=== PATIENT | male | born 1990 | race Caucasian/White ===

== ENCOUNTER 2017-05-01 12:23 | Observation (INO) | payer OTHER ==
[2017-05-01] VITALS (9 sets, daily range): BP systolic 131–149; BP diastolic 70–97; PULSE 70–94; RESP 18–20; TEMP 98.6–101.3; O2SAT 97–100
[~2017-05-01 12:23] MED LIST: DEXM10XR PO
[2017-05-01] MEDS ORDERED: SODIUM CHLORIDE 0.9% FLUSH 10 ML FLUSH IV FLUSH PRN (16:00)
[2017-05-01] MEDS ORDERED: SENNOSIDES 8.6 MG TAB PO PRN (16:00)
[2017-05-01] MEDS ORDERED: BISACODYL 10 MG SUPP RECTAL PRN (16:00)
[2017-05-01] MEDS ORDERED: NALOXONE HCL 0.4 MG/ML AMP IV PUSH PRN (16:00)
[2017-05-01] MEDS ORDERED: LACTULOSE SYRUP 20 GM/30 ML CUP PO PRN (16:00)
[2017-05-01] MEDS ORDERED: MAGNESIUM HYDROXIDE SUSP 30 ML CUP PO PRN (16:00)
--- NOTE | 2017-05-01 16:22 | HHI.HP ---
HPI Service [facility] Hospitalists Primary Care Physician No Primary Care Physician Admission Diagnosis Diagnoses: Chief Complaint: chest and back pain Travel History International Travel<30 Days: No Contact w/Intl Traveler <30 Da: No History of Present Illness Written by Mono Hardy, acting as scribe for Dr. Chavez on 05/01/17 at 16:21. 26 year old male with a past medical history of ADHD who presented for back and chest pain. The patient states that yesterday he began having back pain in the morning and progressively worsened throughout the day. He states that around midday yesterday he began having radiation of the back pain into his chest that has progressively worsened as well. He describes the pain as sharp and tight. He feels like the pain is different between the 2 of them. The pain is worse whenever he moves and whenever he takes a deep breath. He states when he woke up this morning the pain was much more severe and it made it difficult to move because of that exacerbated the pain. He has had occasional short sharp episodes of back pain and chest pain over the last few years intermittently, but doesn't feel like this pain is similar. He was noted to have an EKG consistent with Brugada syndrome in the ED, cardiology was contacted, and the patient was transferred from the [place] ED to [facility] in [facility]. RN bedside has noted that since the patient got here he has a fever of 101. The patient states that yesterday he did notice that he started to have a dry cough. He denies any sick contacts. He has noted a headache and some lightheadedness especially with position changes for the last month. He denies any nausea or vomiting. Has not taken any ADHD medicines since he was 19. He has smoked since age 15. His father did have his first MS in his 40s. Patient states that he has had soreness in his hands bilaterally for the last year. The patient states his legs and knees are sore after a days work. Review of Systems Except as stated in HPI: all other systems reviewed are Neg Past Family Social History Past Medical History ADHD, off meds 7 years Past Surgical History Cyst from above left eye removed. Reported Medications None Allergies: Coded Allergies: No Known Allergies (Verified , 05/04/05) Active Ordered Medications Current Medications Medications (Trade) Dose Ordered Sig/Jason Route Start Time Stop Time Status Last Admin (NS Flush) 2 ml UNSCH PRN IV FLUSH 05/01/17 16:00 UNV (NS Flush) 2 ml BID IV FLUSH 05/01/17 21:00 UNV (Narcan Inj) 0.4 mg UNSCH PRN IV PUSH 05/01/17 16:00 UNV (Milk Of Magnesia Liq) 30 ml Q12H PRN PO 05/01/17 16:00 UNV (Senokot) 17.2 mg Q12H PRN PO 05/01/17 16:00 UNV (Dulcolax Supp) 10 mg DAILY PRN RECTAL 05/01/17 16:00 UNV (Lactulose Liq) 30 ml DAILY PRN PO 05/01/17 16:00 UNV Family History Father had his first MS in his 40s and at age 65 Mother has arthritis and anemia Social History Smokes half a pack per day since age 15 Social alcohol use Marijuana use, last used 3 days ago Works grinding metal Physical Exam Physical Exam GENERAL: Well-developed well-nourished. In no acute distress. SKIN: Warm and dry. No lesions noted. HEENT: Normocephalic. Pupils equal and round. Mucous membranes pink and moist. CARDIOVASCULAR: Regular rate and rhythm. No murmur appreciated. Anterior chest wall with some tenderness along the left sternal border the patient states is the same as the chest pain he's been having. RESPIRATORY: No accessory muscle use. Clear to auscultation. Breath sounds equal bilaterally. GASTROINTESTINAL: Abdomen soft, non-tender, nondistended. Bowel sounds x4. MUSCULOSKELETAL: No obvious deformities. No clubbing or cyanosis. No edema. NEUROLOGICAL: Awake and alert. No focal neurological deficits. Moves upper and lower extremities spontaneously. Normal speech. PSYCHIATRIC: Appropriate mood and affect; insight and judgment normal. Caprini VTE Risk Assessment Caprini VTE Risk Assessment: No/Low Risk (score <= 1) Caprini Risk Assessment Model Point Value = 1 Point Value = 2 Point Value = 3 Point Value = 5 Age 41-60 Minor surgery BMI > 25 kg/m2 Swollen legs Varicose veins or History of unexplained or recurrent spontaneous Oral contraceptives or hormone replacement Sepsis (< 1 month) Serious lung disease, including pneumonia (< 1 month) Abnormal pulmonary function Acute myocardial infarction Congestive heart failure (< 1 month) History of inflammatory bowel disease Medical patient at bed rest Age 61-74 Arthroscopic surgery Major open surgery (> 45 min) Laparoscopic surgery (> 45 min) Malignancy Confined to bed (> 72 hours) Immobilizing plaster cast Central venous access Age >= 75 History of VTE Family history of VTE Factor V Leiden Prothrombin [id number] Lupus anticoagulant Anticardiolipin antibodies Elevated serum homocysteine Heparin-induced thrombocytopenia Other congenital or acquired thrombophilia Stroke (< 1 month) Elective arthroplasty Hip, pelvis, or leg fracture Acute spinal cord injury (< 1 month) Prophylaxis Regimen Total Risk Factor Score Risk Level Prophylaxis Regimen 0-1 Low Early ambulation 2 Moderate Order ONE of the following: *Sequential Compression Device (SCD) *Heparin 5000 units SQ BID 3-4 Higher Order ONE of the following medications: *Heparin 5000 units SQ TID *Enoxaparin/Lovenox 40 mg SQ daily (WT < 150 kg, CrCl > 30 mL/min) *Enoxaparin/Lovenox 30 mg SQ daily (WT < 150 kg, CrCl > 10-29 mL/min) *Enoxaparin/Lovenox 30 mg SQ BID (WT < 150 kg, CrCl > 30 mL/min) AND/OR *Sequential Compression Device (SCD) 5 or more Highest Order ONE of the following medications: *Heparin 5000 units SQ TID (Preferred with Epidurals) *Enoxaparin/Lovenox 40 mg SQ daily (WT < 150 kg, CrCl > 30 mL/min) *Enoxaparin/Lovenox 30 mg SQ daily (WT < 150 kg, CrCl > 10-29 mL/min) *Enoxaparin/Lovenox 30 mg SQ BID (WT < 150 kg, CrCl > 30 mL/min) AND *Sequential Compression Device (SCD) Assessment and Plan Assessment and Plan 26 year old male with a past medical history of ADHD who presented for back and chest pain Back and chest pain: Reviewed: Initial troponin 0.02. EKG with incomplete right bundle branch block and sharp ST elevation in V1 and V2; V1 had similar features on previous EKG from 2007. Fever with no leukocytosis. -Check CTA of the chest to evaluate especially for PE or dissection, or possible pneumonia -Check echocardiogram, pericarditis is in the differential -Continue to trend cardiac enzymes and EKGs -Check ESR, UDS, lipase -Cardiology has been consulted Brugada syndrome: EKG as above consistent with Brugada syndrome. -Further workup as above -Telemetry monitoring SIRS: Fever, tachycardia. Chest x-ray unremarkable. -Check blood cultures and lactic acid -IVF Discussed Condition With Patient with girlfriend and RN at bedside, ED M.D. Attending Statement This note was transcribed by scribdong [Mono Hardy]. I, Dr. Rick Chavez personally performed the history, physical exam, and medical decision making; and confirmed the accuracy of the information in the transcribed note. Authenticated by Dr. Rick Chavez on 05/01/17 at 22:36. Mono Hardy May 01, 2017 16:22 Rick Chavez MD May 01, 2017 22:36
[2017-05-01] MEDS ORDERED: IOHEXOL 350 MG/ML 10 ML VIAL (for RAD DIAG) IVCONTRAST ONE (16:36)
[2017-05-01] MEDS ORDERED: SODIUM CHLORID 0.9% 500 ML INJ 500 ML IV ONE (17:00)
[2017-05-01] MEDS: ACETAMINOPHEN 325 MG TAB PO PRN (17:39)
[2017-05-01] MEDS: SODIUM CHLOR 0.9% 1000 ML INJ 1,000 ML IV SCH (17:45)
[2017-05-01] MEDS: MORPHINE SULFATE 2 MG/ML INJ IV PUSH PRN ×2 (19:19→21:56)
--- NOTE | 2017-05-01 19:29 | MB ---
cc: NHAN VO MD DATE OF CONSULTATION 05/01/2017 INDICATION Chest pain. HISTORY OF PRESENT ILLNESS this is a very nice 26-year-old who has a history of ADHD who presented with chest and back pain. The patient basically states that he was in his usual state of health until about noon yesterday when his started developing back pain. It eventually became a little worse and radiating towards the chest. He describes it as sort of a tightness and not so much sharp pain as an achy feeling. It is worse with deep inspiration. He states that maybe palpation might make things a little worse. It was not exertional. He had presented to the emergency department over in [place]. There he had an electrocardiogram which showed a right bundle-branch block with ST elevation in the V1 lead and brugada like EKG. Obviously with this concerning future, I was contacted for further recommendations. The patient actually denies any history of syncope and family history blake he does have a father who passed at age 65 as a sudden event, but he also had bypass surgery and coronary disease. The patient was subsequently transferred over to inpatient status. He is slightly uncomfortable now. Electrocardiogram has not shown any change in and troponin is negative. PAST MEDICAL HISTORY ADHD. ALLERGIES NO KNOWN DRUG ALLERGIES. FAMILY HISTORY Dad did have a heart attack in his 40s, at age 65 suddenly after having a diagnosis of coronary disease and bypass surgery. I am not sure if this was arrhythmia driven or not. SOCIAL HISTORY Smokes half-a-pack a day since age 15. Social alcohol use. Does report marijuana use. REVIEW OF SYSTEMS 12-point review of systems was performed, negative unless otherwise noted is history of present illness. PHYSICAL EXAMINATION VITAL SIGNS: Temperature 101.3, pulse 93, blood pressure 149/86 mmHg. GENERAL: Alert and oriented times three in no acute distress. HEENT: Pupils reactive to light and accommodation, extraocular movements are intact. No elevation in jugular venous distension. No thyromegaly or lymphadenopathy. No carotid bruits. LUNGS: Clear to auscultation bilaterally. CARDIOVASCULAR: Regular rate and rhythm without murmurs, rubs or gallops. ABDOMEN: Nontender, nondistended. Good bowel sounds. No hepatosplenomegaly. EXTREMITIES: No clubbing, cyanosis or edema. Good peripheral pulses. NEUROLOGIC: Cranial nerves intact. Motor and sensory grossly intact. LABORATORY DATA WBC - 9.1, hemoglobin 16.8, platelet count 237, INR is 1.1, sodium 138, potassium 3.5, BUN is 11, creatinine is 1.2, troponin 0.02. CARDIOLOGY STUDIES Electrocardiogram shows sinus rhythm. Incomplete right bundle-branch block with ST elevation isolated to lead I. ASSESSMENT 1. Chest pain. 2. Abnormal electrocardiogram. PLAN 1. The patient's symptoms sound somewhat pleuritic in nature, worse with deep inspiration. He has had prolonged symptoms now for greater than 12 hours with no evolution of electrocardiographic changes or elevation in troponin. It does not appear to be cardiac in nature, particularly given his age and lack of risk factors. Would be potentially be concerned for aortic dissection given the radiation towards his back, but his blood pressure is not particularly that high. We will wait to get the CTA of the aorta and also, given his pleuritic chest pain and also to make sure he does not have a pulmonary embolism, can get a 2-D echocardiogram routinely. Rule out any structural heart disease. If his workup is essentially negative, we can start him nonsteroidal anti-inflammatories for pleuritis. He does have a fever and cough so this may be early infectious process. 2. From electrocardiogram perspective, it appears that this abnormal EKG finding has a strong appearance consistent with Brugada syndrome, has been present now for quite some time. Although he does have a family history of sudden , it is isolated to his father who has a history of coronary disease and bypass surgery and this occurred at age 65, not at a young age. This patient has not had any symptoms of presyncope or syncope and he has been otherwise healthy. We will still ask electrophysiology for their opinion just to determine his potential risk for any sudden events given his abnormal EKG. I think this is more of an incidental finding. It has nothing to do with his presentation of symptoms. MD KEVIN Masters/ /6:16 PM /6:56 PM
[2017-05-01] MEDS: SODIUM CHLORIDE 0.9% FLUSH 10 ML FLUSH IV FLUSH SCH (21:00)
[2017-05-01] MEDS ORDERED: ATROPINE SULFATE 1 MG/10 ML SYRINGE ONE (21:12)
[2017-05-01] MEDS ORDERED: EPINEPHrine HCL (1:10,000) 1 MG/10 ML SYRINGE ONE (21:12)
--- NOTE | 2017-05-01 22:19 | RADRPT ---
EXAM DATE/TIME: 05/01/2017 21:21 [facility] COMPARISON: CHEST SINGLE AP, May 01, 2017, 10:59. INDICATIONS : Shortness of breath, cough. Evaluate dissection and pulmonary embolism. IV CONTRAST: 100 cc Omnipaque 350 (iohexol) IV RADIATION DOSE: 5.88 CTDIvol (mGy) MEDICAL HISTORY : None SURGICAL HISTORY : None. ENCOUNTER: Initial ACUITY: 1 day PAIN SCALE: 4/10 LOCATION: chest TECHNIQUE: Volumetric scanning was performed using a multi-row detector CT scanner. The data was post processed with a variety of visualization algorithms including full volume maximum intensity projection, multi -planar sliding thin slab reformation, curved planar reformation, and surface rendering techniques. Using automated exposure control and adjustment of the mA and/or kV according to patient size, radiat ion dose was kept as low as reasonably achievable to obtain optimal diagnostic quality images. DICOM format image data is available electronically for review and comparison. FINDINGS: LUNGS: There is no consolidation or pneumothorax. No concerning pulmonary nodule is visualized. No pleural fluid is present. MEDIASTINUM: No abnormally enlarged lymph nodes by CT criteria. No axillary or hilar abnormalities are identified. ABDOMEN: The liver and spleen are free of focal defects. The gallbladder and pancreas demonstrate no abnormali ty. The adrenal glands are normal. The kidneys demonstrate no evidence of solid renal mass or hydrone phrosis. No free fluid or abdominal masses are identified. No para-aortic adenopathy is seen. PELVIS: No evidence of free fluid or pelvic mass. No abnormally enlarged inguinal or retroperitoneal lymph no ruddy are present. The bladder is unremarkable. THORACIC AORTA: The thoracic aortic root is normal with normal branching of the great vessels. There is no evidence of aneurysm or dissection. ABDOMINAL AORTA: The aorta is normal in caliber without aneurysm or dissection. The renal arteries are patent bilater ally. The proximal celiac and superior mesenteric arteries are patent and normal in diameter. PELVIC VESSELS: The internal iliac and external iliac vessels are patent without aneurysm or stenosis. Miscellaneous. Intrathoracic and intra-abdominal contents appear normal with pulmonary vascularity both arterial and venous relatively well visualized and there is no evidence of pulmonary embolism. CONCLUSION: Normal examination. No evidence of vascular aneurysm or dissection. Negative pulmonary vascularity. Intrathoracic and intra-abdominal contents are normal. Maxi Ocasio MD on May 01, 2017 at 22:14 Board Certified Radiologist. This report was verified electronically.
[2017-05-01 23:44] LABS: ALKALINE PHOSPHATASE 38 U/L (45-117); TOTAL BILIRUBIN ADULT 0.6 MG/DL (0.2-1.0)
[2017-05-01 23:57] LABS: ALT (GPT) 15 U/L (12-78); AST (GOT) 10 U/L (15-37); INDIRECT BILIRUBIN 0.4 MG/DL (0.0-0.8)
[2017-05-02] VITALS (26 sets, daily range): BP systolic 127–132; BP diastolic 71–91; PULSE 54–96; RESP 17–18; TEMP 98.4–100.1; O2SAT 94–100
[2017-05-02] MEDS: SODIUM CHLOR 0.9% 1000 ML INJ 1,000 ML IV SCH ×3 (03:00→22:40)
[2017-05-02] MEDS: MORPHINE SULFATE 2 MG/ML INJ IV PUSH PRN (04:09)
[2017-05-02 06:54] LABS: AUTOMATED NEUTROPHIL # 5.6 TH/MM3 (1.8-7.7); BASOPHIL % 0.3 % (0.0-2.0); EOSINOPHIL % 0.1 % (0.0-4.0); HEMATOCRIT 41.9 % (39.0-51.0); HEMO FLAGS DIFF FINAL; LYMPHOCYTE # 1.2 TH/MM3 (1.0-4.8); MEAN CELL VOLUME 86.7 FL (80.0-100.0); MEAN CORPUSCULAR HEMOGLOBIN 30.2 PG (27.0-34.0); MEAN CORPUSCULAR HGB CONC 34.8 % (32.0-36.0); MONO % 13.4 % (0.0-8.0); NEUT % 71.2 % (16.0-70.0); PLATELET COUNT 162 TH/MM3 (150-450); RED BLOOD COUNT 4.83 MIL/MM3 (4.50-5.90); RED CELL DISTRIBUTION WIDTH 13.2 % (11.6-17.2); WHITE BLOOD COUNT 7.8 TH/MM3 (4.0-11.0)
[2017-05-02 07:33] LABS: ANION GAP 5 MEQ/L (5-15); AST (GOT) 6 U/L (15-37); BICARBONATE 27.4 MEQ/L (21.0-32.0); BLOOD UREA NITROGEN 12 MG/DL (7-18); CHLORIDE 105 MEQ/L (98-107); GLOMERULAR FILTRATION RATE 82 ML/MIN (>89); POTASSIUM 3.8 MEQ/L (3.5-5.1); SODIUM (NA) 137 MEQ/L (136-145)
[2017-05-02 07:34] LABS: ALT (GPT) 13 U/L (12-78)
[2017-05-02 07:36] LABS: ALKALINE PHOSPHATASE 33 U/L (45-117); TOTAL BILIRUBIN ADULT 0.6 MG/DL (0.2-1.0)
--- NOTE | 2017-05-02 07:43 | HHI.PR ---
Subjective Remarks dry cough, body aches- better, low grade fever last evening feeling better no diarrhea flu like symptoms started within the last 24 hours- 36 hours Objective Vitals Vital Signs Date Time Temp Pulse Resp B/P (MAP) Pulse Ox O2 Delivery O2 Flow Rate FiO2 05/02/17 06:00 63 05/02/17 05:06 74 05/02/17 04:00 96 05/02/17 03:04 100.1 80 18 127/74 (91) 100 05/02/17 03:00 74 05/02/17 02:00 70 05/02/17 01:00 63 05/02/17 00:00 85 05/01/17 23:00 79 05/01/17 23:00 98.6 77 18 143/97 (112) 100 05/01/17 22:00 70 05/01/17 21:00 86 05/01/17 20:00 77 05/01/17 19:53 98.7 82 18 131/70 (90) 97 05/01/17 19:00 94 05/01/17 18:00 92 05/01/17 17:00 88 05/01/17 16:00 90 05/01/17 16:00 101.3 93 20 149/86 (107) 97 I/O 05/01/17 05/01/17 05/01/17 05/02/17 05/02/17 05/02/17 07:00 15:00 23:00 07:00 15:00 23:00 Intake Total 1650 ml Balance 1650 ml Intake Oral 240 ml IV Total 1410 ml # Voids 2 Result Diagram: 05/02/1750605/02/17506 Imaging Last Impressions Aorta CTA 05/01/172035 Signed Impressions: Service Date/Time: April 21:21 - CONCLUSION: Normal examination. No evidence of vascular aneurysm or dissection. Negative pulmonary vascularity. Intrathoracic and intra-abdominal contents are normal. Maxi Ocasio MD Objective Remarks awake and alert, not ind idtress throat no exudates lungs clear chest wall slightly tender to touch regular rhythm abdomen soft, nontender extremities no edema A/P Assessment and Plan 26 year old male with a past medical history of ADHD who presented for back and chest pain Influenza A SIRS: Fever, tachycardia.- t - t max 100- low grade- HR improved - blood cultures- negative so far. Influenza A + - start on TAmiflu 75 mg po bid x 5 days encourage po fluids Tylenol prn for body aches -IVF Back and chest pain: Reviewed: Initial troponin 0.02. EKG with incomplete right bundle branch block and sharp ST elevation in V1 and V2; V1 had similar features on previous EKG from 2007. -Check echocardiogram, pericarditis is in the differential- cardiology considering trial of NSAIds -Continue to trend cardiac enzymes and EKGs. ESR-1 - cardiology ff along with us CXR and EKGs reviewed Brugada syndrome: EKG as above consistent with Brugada syndrome.- likely incidental finding -Further workup per Cardiology- - echo pending. [facility] Operator will be consulted -CTA negative for aortic dissection -Telemetry monitoring Discussed Condition With Patient and GF at bedside advise mounika get flu shot yearly in the future Gaby Dubon MD May 02, 2017 07:43
[2017-05-02] MEDS: SODIUM CHLORIDE 0.9% FLUSH 10 ML FLUSH IV FLUSH SCH ×2 (07:56→21:00)
[2017-05-02] MEDS ORDERED: OSELTAMIVIR PHOSPHATE 75 MG CAP PO ONE (08:00)
[2017-05-02] MEDS ORDERED: OSELTAMIVIR PHOSPHATE 75 MG CAP PO SCH (08:00)
--- NOTE | 2017-05-02 08:28 | PD.CARD.PN ---
Subjective Subjective Remarks CP improving no events Objective Medications Current Medications Medications (Trade) Dose Ordered Sig/Jason Route Start Time Stop Time Status Last Admin (NS Flush) 2 ml UNSCH PRN IV FLUSH 05/01/17 16:00 (NS Flush) 2 ml BID IV FLUSH 05/01/17 21:00 (Narcan Inj) 0.4 mg UNSCH PRN IV PUSH 05/01/17 16:00 (Milk Of Magnesia Liq) 30 ml Q12H PRN PO 05/01/17 16:00 (Senokot) 17.2 mg Q12H PRN PO 05/01/17 16:00 (Dulcolax Supp) 10 mg DAILY PRN RECTAL 05/01/17 16:00 (Lactulose Liq) 30 ml DAILY PRN PO 05/01/17 16:00 Sodium Chloride 1,000 ml @ 100 mls/hr Q10H IV 05/01/17 17:00 05/02/17 03:00 (Tylenol) 650 mg Q4H PRN PO 05/01/17 17:30 05/01/17 17:39 (Morphine Inj) 1 mg Q3HR PRN IV PUSH 05/02/17 07:30 UNV (Tamiflu) 75 mg Q12H PO 05/02/17 20:00 05/06/17 20:01 Vital Signs / I&O Vital Signs Date Time Temp Pulse Resp B/P (MAP) Pulse Ox O2 Delivery O2 Flow Rate FiO2 05/02/17 08:14 80 05/02/17 07:15 63 05/02/17 07:15 99.0 77 17 129/72 (91) 100 05/02/17 06:00 63 05/02/17 05:06 74 05/02/17 04:00 96 05/02/17 03:04 100.1 80 18 127/74 (91) 100 05/02/17 03:00 74 05/02/17 02:00 70 05/02/17 01:00 63 05/02/17 00:00 85 05/01/17 23:00 79 05/01/17 23:00 98.6 77 18 143/97 (112) 100 05/01/17 22:00 70 05/01/17 21:00 86 05/01/17 20:00 77 05/01/17 19:53 98.7 82 18 131/70 (90) 97 05/01/17 19:00 94 05/01/17 18:00 92 05/01/17 17:00 88 05/01/17 16:00 90 05/01/17 16:00 101.3 93 20 149/86 (107) 97 I/O 05/01/17 05/01/17 05/01/17 05/02/17 05/02/17 05/02/17 07:00 15:00 23:00 07:00 15:00 23:00 Intake Total 1650 ml Balance 1650 ml Intake Oral 240 ml IV Total 1410 ml # Voids 2 Physical Exam GENERAL: SKIN: Warm and dry. HEAD: Normocephalic. EYES: No scleral icterus. No injection or drainage. NECK: Supple, trachea midline. No JVD or lymphadenopathy. CARDIOVASCULAR: Regular rate and rhythm without murmurs, gallops, or rubs. RESPIRATORY: Breath sounds equal bilaterally. No accessory muscle use. GASTROINTESTINAL: Abdomen soft, non-tender, nondistended. MUSCULOSKELETAL: No cyanosis, or edema. BACK: Nontender without obvious deformity. No CVA tenderness. Laboratory Laboratory Tests Test 05/01/17 19:10 05/01/17 19:18 05/01/17 22:43 05/02/17 05:07 Erythrocyte Sedimentation Rate 1 mm/hr D-Dimer Quantitative (PE/DVT) 0.56 MG/L FEU Lactic Acid Level 1.1 mmol/L Total Bilirubin 0.6 MG/DL 0.6 MG/DL Direct Bilirubin 0.2 MG/DL Indirect Bilirubin 0.4 MG/DL Aspartate Amino Transf (AST/SGOT) 10 U/L 6 U/L Alanine Aminotransferase (ALT/SGPT) 15 U/L 13 U/L Alkaline Phosphatase 38 U/L 33 U/L Troponin I LESS THAN 0.02 NG/ML LESS THAN 0.02 NG/ML Total Protein 6.9 GM/DL 6.6 GM/DL Albumin 3.8 GM/DL 3.7 GM/DL Lipase 84 U/L White Blood Count 7.8 TH/MM3 Red Blood Count 4.83 MIL/MM3 Hemoglobin 14.6 GM/DL Hematocrit 41.9 % Mean Corpuscular Volume 86.7 FL Mean Corpuscular Hemoglobin 30.2 PG Mean Corpuscular Hemoglobin Concent 34.8 % Red Cell Distribution Width 13.2 % Platelet Count 162 TH/MM3 Mean Platelet Volume 8.2 FL Neutrophils (%) (Auto) 71.2 % Lymphocytes (%) (Auto) 15.0 % Monocytes (%) (Auto) 13.4 % Eosinophils (%) (Auto) 0.1 % Basophils (%) (Auto) 0.3 % Neutrophils # (Auto) 5.6 TH/MM3 Lymphocytes # (Auto) 1.2 TH/MM3 Monocytes # (Auto) 1.0 TH/MM3 Eosinophils # (Auto) 0.0 TH/MM3 Basophils # (Auto) 0.0 TH/MM3 CBC Comment DIFF FINAL Differential Comment Blood Urea Nitrogen 12 MG/DL Creatinine 1.10 MG/DL Random Glucose 89 MG/DL Calcium Level 8.2 MG/DL Sodium Level 137 MEQ/L Potassium Level 3.8 MEQ/L Chloride Level 105 MEQ/L Carbon Dioxide Level 27.4 MEQ/L Anion Gap 5 MEQ/L Estimat Glomerular Filtration Rate 82 ML/MIN Imaging Last 24 hours Impressions Aorta CTA 05/01/172035 Signed Impressions: Service Date/Time: April 21:21 - CONCLUSION: Normal examination. No evidence of vascular aneurysm or dissection. Negative pulmonary vascularity. Intrathoracic and intra-abdominal contents are normal. Maxi Ocasio MD Assessment and Plan Assessment and Plan CP - atypical. CTA negative. Trop negative. no further cardiac workup necessary. pleuritic CP. NSAIDs. ibuprofen 600 mg TID x 7 days with PPI. FU PCP brugada EKG - EP consult Arun Fay MD May 02, 2017 08:28
[2017-05-02] MEDS ORDERED: ONDANSETRON HCL 4 MG/2 ML VIAL IV PUSH PRN (09:00)
[2017-05-02] MEDS ORDERED: PANTOPRAZOLE SOD 40 MG DELAYED RELEASE TAB PO ONE (09:15)
[2017-05-02] MEDS: ACETAMINOPHEN 325 MG TAB PO PRN ×3 (09:38→21:15)
--- NOTE | 2017-05-02 11:57 | ECHRPT ---
Indication: CHEST PAIN CONCLUSIONS Normal left ventricular size. Wall thickness is normal. [id number] mitral valve regurgitation. The pulmonary valve is not well visualized. The left ventricular systolic function is normal with an estimated ejection fraction in the range of 60-65%. BP: 149 / 86 HR: Rhythm: Sinus MEASUREMENTS (Male / Female) Normal Values Technical Quality:Fair 2D ECHO LV Diastolic Diameter PLAX 5.0 cm 4.2 - 5.9 / 3.9 - 5.3 cm LV Systolic Diameter PLAX 3.5 cm IVS Diastolic Thickness 0.9 cm 0.6 - 1.0 / 0.6 - 0.9 cm LVPW Diastolic Thickness 0.9 cm 0.6 - 1.0 / 0.6 - 0.9 cm LV Relative Wall Thickness 0.4 LVOT Diameter 2.4 cm Aortic Root Diameter 3.3 cm LA Systolic Diameter LX 2.6 cm 3.0 - 4.0 / 2.7 - 3.8 cm M-MODE AV Cusp Separation MM 2.6 cm DOPPLER AV Peak Velocity 109.0 cm/s AV Peak Gradient 4.8 mmHg AV Mean Gradient 2.0 mmHg AV Velocity Time Integral 15.4 cm LVOT Peak Velocity 66.2 cm/s LVOT Peak Gradient 1.8 mmHg LVOT Velocity Time Integral 10.3 cm AV Area Cont Eq vti 3.0 cm AV Area Cont Eq pk 2.7 cm Mitral E Point Velocity 61.7 cm/s Mitral A Point Velocity 39.0 cm/s Mitral E to A Ratio 1.6 LV E' Lateral Velocity 12.3 cm/s Mitral E to LV E' Lateral Ratio 5.0 LV E' Septal Velocity 9.5 cm/s Mitral E to LV E' Septal Ratio 6.5 TR Peak Velocity 232.0 cm/s TR Peak Gradient 21.5 mmHg PV Peak Velocity 60.9 cm/s PV Peak Gradient 1.5 mmHg FINDINGS LEFT VENTRICLE Normal left ventricular size. Wall thickness is normal. The left ventricular systolic function is normal with an estimated ejection fraction in the range of 60-65%. RIGHT VENTRICLE Normal right ventricular size and systolic function. LEFT ATRIUM The left atrial size is normal. RIGHT ATRIUM The right atrial size is normal. ATRIAL SEPTUM Normal atrial septal thickness without atrial level shunting by limited color doppler interrogation. AORTA The aortic root and proximal ascending aorta are normal in size on limited imaging. MITRAL VALVE [id number] mitral valve regurgitation. AORTIC VALVE Trileaflet aortic valve. No aortic valve stenosis or regurgitation. TRICUSPID VALVE Structurally normal tricuspid valve. No tricuspid valve stenosis or regurgitation. PULMONARY VALVE The pulmonary valve is not well visualized. VESSELS The inferior vena cava is normal in size. PERICARDIUM No pericardial effusion. Arun Fay MD, FACC (Electronically Signed) Final Date:02 May 2017 11:56
[2017-05-02] MEDS ORDERED: MORPHINE SULFATE 2 MG/ML INJ IV PUSH PRN (14:00)
[2017-05-02] MEDS: OSELTAMIVIR PHOSPHATE 75 MG CAP PO SCH (20:59)
--- NOTE | 2017-05-02 21:28 | EKG ---
Date Performed: 05/01/2017 Time Performed: 21:43:14 PTAGE: 26 years EKG: Sinus rhythm RIGHT BUNDLE BRANCH BLOCK Septal ST-T changes are borderline abnormal Borderline ECG PREVIOUS TRACING : 05/01/2017 15.37 Compared to prior tracing no significant change DOCTOR: Amari Norris Interpretating Date/Time 05/02/2017 21:26:24
--- NOTE | 2017-05-02 23:23 | EKG ---
Date Performed: 05/01/2017 Time Performed: 15:37:20 PTAGE: 26 years EKG: Sinus tachycardia. IVCD Abnormal ECG NO PREVIOUS TRACING DOCTOR: Amari Norris Interpretating Date/Time 05/02/2017 23:22:10
[2017-05-03] VITALS (29 sets, daily range): BP systolic 115–135; BP diastolic 75–96; PULSE 42–70; RESP 16–18; TEMP 97.7–98.7; O2SAT 99–100
[2017-05-03] MEDS ORDERED: MORPHINE SULFATE 2 MG/ML INJ IV PUSH PRN (08:00)
--- NOTE | 2017-05-03 08:01 | HHI.PR ---
Subjective Remarks patient up and ambulating- HR 56 left sided pain/discomfort - pleuritic, tender on palpation telemetry- sinus- when asleep - dip down to 40s Objective Vitals Vital Signs Date Time Temp Pulse Resp B/P (MAP) Pulse Ox O2 Delivery O2 Flow Rate FiO2 05/03/17 05:16 100 Room Air 05/03/17 05:16 55 16 122/86 (98) 100 05/03/17 03:00 50 05/03/17 02:00 64 05/03/17 01:00 44 05/03/17 00:00 58 05/02/17 23:00 60 05/02/17 23:00 62 18 128/89 (102) 99 05/02/17 23:00 99 Room Air 05/02/17 22:00 60 05/02/17 21:00 56 05/02/17 20:00 66 05/02/17 19:35 98.9 62 18 128/91 (103) 97 05/02/17 19:35 94 Room Air 05/02/17 19:00 61 05/02/17 18:20 56 05/02/17 17:11 57 05/02/17 16:16 60 05/02/17 15:23 69 05/02/17 15:23 98.5 66 18 132/74 (93) 95 05/02/17 15:00 95 Nasal Cannula 1.00 05/02/17 14:05 56 05/02/17 13:03 54 05/02/17 12:08 66 05/02/17 11:44 98.6 63 18 129/71 (90) 94 05/02/17 11:44 70 05/02/17 11:00 94 Nasal Cannula 1.00 05/02/17 10:24 77 05/02/17 09:09 76 05/02/17 08:14 80 I/O 05/02/17 05/02/17 05/02/17 05/03/17 05/03/17 05/03/17 07:00 15:00 23:00 07:00 15:00 23:00 Intake Total 1650 ml 590 ml 972 ml 480 ml Output Total 600 ml Balance 1650 ml 590 ml 972 ml -120 ml Intake Oral 240 ml 600 ml 480 ml IV Total 1410 ml 590 ml 372 ml Output Urine Total 600 ml # Voids 2 3 # Bowel Movements 0 Result Diagram: 05/02/17 0507 05/02/17 0507 Imaging Last Impressions Aorta CTA 05/01/172035 Signed Impressions: Service Date/Time: , May 01, 2017 21:21 - CONCLUSION: Normal examination. No evidence of vascular aneurysm or dissection. Negative pulmonary vascularity. Intrathoracic and intra-abdominal contents are normal. Maxi Ocasio MD Objective Remarks awake and alert, throat no exudates lungs clear left chest wall tender to palpation regular rhythm abdomen soft, nontender extremities no edema A/P Assessment and Plan 26 year old male with a past medical history of ADHD who presented for back and chest pain Influenza A SIRS: Fever, tachycardia.- t - t max 100- low grade- HR improved - blood cultures- negative so far. Influenza A + - start on TAmiflu 75 mg po bid x 5 days encourage po fluids Back and chest pain: Reviewed: Initial troponin 0.02. EKG with incomplete right bundle branch block and sharp ST elevation in V1 and V2; V1 had similar features on previous EKG from 2007. -Echo unremarkable - pericarditis is in the differential- cardiology- ESR 1 - considering trial of NSAIds- Ibuprofen 600 mg po tid -Continue to trend cardiac enzymes and EKGs. ESR-1 - cardiology ff along with us CXR and EKGs reviewed Brugada syndrome: EKG as above consistent with Brugada syndrome.- likely incidental finding -Further workup per Cardiology- - echo unremarkable . Security Tester consulted- awaiting evaluation -CTA negative for aortic dissection -Telemetry monitoring Discussed Condition With Patient and GF at bedside advise mounika get flu shot yearly in the future Gaby Dubon MD May 03, 2017 08:01
[2017-05-03] MEDS: SODIUM CHLORIDE 0.9% FLUSH 10 ML FLUSH IV FLUSH SCH ×2 (08:39→21:02)
[2017-05-03] MEDS: OSELTAMIVIR PHOSPHATE 75 MG CAP PO SCH ×2 (08:39→21:02)
[2017-05-03] MEDS: PANTOPRAZOLE SOD 40 MG DELAYED RELEASE TAB PO SCH (09:00)
[2017-05-03] MEDS: IBUPROFEN 600 MG TAB PO SCH ×3 (09:53→17:45)
[2017-05-04] VITALS (17 sets, daily range): BP systolic 125–130; BP diastolic 83–87; PULSE 42–72; RESP 17–18; TEMP 97.8–98.2; O2SAT 95–100
--- NOTE | 2017-05-04 08:23 | HHI.PR ---
Subjective Remarks no complains\patient up and ambulating around the floor- HR 58- asinus at rest- HR 40s- sinus no CP Objective Vitals Vital Signs Date Time Temp Pulse Resp B/P (MAP) Pulse Ox O2 Delivery O2 Flow Rate FiO2 05/04/17 06:00 46 05/04/17 05:43 100 Room Air 05/04/17 05:38 47 18 129/83 (98) 100 05/04/17 05:00 42 05/04/17 04:00 44 05/04/17 03:00 55 05/04/17 02:00 44 05/04/17 01:00 58 05/04/17 00:00 46 05/03/17 23:14 100 Room Air 05/03/17 23:14 49 16 115/75 (88) 100 05/03/17 23:00 43 05/03/17 22:00 44 05/03/17 21:00 42 05/03/17 20:00 54 05/03/17 19:40 98.7 54 16 126/89 (101) 99 05/03/17 19:40 99 Room Air 05/03/17 19:00 62 05/03/17 18:50 18 05/03/17 18:21 53 05/03/17 17:06 56 05/03/17 16:43 65 05/03/17 15:48 99 Room Air 05/03/17 15:48 97.7 51 18 133/96 (108) 99 05/03/17 15:48 51 05/03/17 14:21 63 05/03/17 13:58 53 05/03/17 12:01 52 05/03/17 11:15 99 Room Air 05/03/17 11:15 97.8 55 18 135/89 (104) 99 05/03/17 11:00 56 05/03/17 10:00 58 05/03/17 09:00 62 05/03/17 08:30 97.7 66 18 131/93 (106) 100 05/03/17 08:30 100 Room Air I/O 05/03/17 05/03/17 05/03/17 05/04/17 05/04/17 05/04/17 07:00 15:00 23:00 07:00 15:00 23:00 Intake Total 480 ml 840 ml 480 ml Output Total 600 ml Balance -120 ml 840 ml 480 ml Intake Oral 480 ml 840 ml 480 ml Output Urine Total 600 ml # Voids 4 2 # Bowel Movements 0 1 Result Diagram: 05/02/1750605/02/17506 Imaging Last Impressions Aorta CTA 05/01/172035 Signed Impressions: Service Date/Time: , May 01, 2017 21:21 - CONCLUSION: Normal examination. No evidence of vascular aneurysm or dissection. Negative pulmonary vascularity. Intrathoracic and intra-abdominal contents are normal. Maxi Ocasio MD Objective Remarks awake and alert, throat no exudates lungs clear left chest- non tender regular rhythm abdomen soft, nontender extremities no edema A/P Assessment and Plan 26 year old male with a past medical history of ADHD who presented for back and chest pain Influenza A SIRS: Fever, tachycardia.- t - t max 100- low grade- HR improved - blood cultures- negative so far. Influenza A + - started on TAmiflu 75 mg po bid x 5 days encourage po fluids - clinically feeling better Back and chest pain:improved Reviewed: Initial troponin 0.02. EKG with incomplete right bundle branch block and sharp ST elevation in V1 and V2; V1 had similar features on previous EKG from 2007. -Echo unremarkable - pericarditis is in the differential- cardiology- although ESR 1 - trial of NSAIds- Ibuprofen 600 mg po tid -Continue to trend cardiac enzymes and EKGs. ESR-1 - cardiology ff along with us CXR and EKGs reviewed Brugada syndrome: EKG as above consistent with Brugada syndrome.- likely incidental finding -Further workup per Cardiology- - echo unremarkable . Oil Paint Shader consulted- awaiting evaluation -CTA negative for aortic dissection -EKGs reviewed -OP ff up Discussed Condition With Patient and GF at bedside advise mounika get flu shot yearly in the future DC today if cleared and after EP evaluation Gaby Dubon MD May 04, 2017 08:23
[2017-05-04] MEDS: SODIUM CHLORIDE 0.9% FLUSH 10 ML FLUSH IV FLUSH SCH (08:28)
[2017-05-04] MEDS: PANTOPRAZOLE SOD 40 MG DELAYED RELEASE TAB PO SCH (08:28)
[2017-05-04] MEDS: OSELTAMIVIR PHOSPHATE 75 MG CAP PO SCH (08:28)
[2017-05-04] MEDS: IBUPROFEN 600 MG TAB PO SCH ×2 (08:28→13:28)
[2017-05-04] MEDS ORDERED: OSEL75 PO (14:03)
--- NOTE | 2017-05-04 14:06 | HHI.DS ---
Discharge Summary Admission Date May 01, 2017 at 16:35 Discharge Date: May 04, 2017 Admitting Diagnosis (1) Influenza ICD Code: J11.1 - Influenza due to unidentified influenza virus with other respiratory manifestations Diagnosis: Principal Procedures none Brief History - From Admission Written by Mono Hardy, acting as scribe for Dr. Chavez on 05/01/17 at 16:21. 26 year old male with a past medical history of ADHD who presented for back and chest pain. The patient states that yesterday he began having back pain in the morning and progressively worsened throughout the day. He states that around midday yesterday he began having radiation of the back pain into his chest that has progressively worsened as well. He describes the pain as sharp and tight. He feels like the pain is different between the 2 of them. The pain is worse whenever he moves and whenever he takes a deep breath. He states when he woke up this morning the pain was much more severe and it made it difficult to move because of that exacerbated the pain. He has had occasional short sharp episodes of back pain and chest pain over the last few years intermittently, but doesn't feel like this pain is similar. He was noted to have an EKG consistent with Brugada syndrome in the ED, cardiology was contacted, and the patient was transferred from the [facility] ED to [facility] in [facility]. RN bedside has noted that since the patient got here he has a fever of 101. The patient states that yesterday he did notice that he started to have a dry cough. He denies any sick contacts. He has noted a headache and some lightheadedness especially with position changes for the last month. He denies any nausea or vomiting. Has not taken any ADHD medicines since he was 19. He has smoked since age 15. His father did have his first DE in his 40s. Patient states that he has had soreness in his hands bilaterally for the last year. The patient states his legs and knees are sore after a days work. CBC/BMP: 05/02/17 0507 05/02/17 0507 Significant Findings Laboratory Tests Test 05/01/17 19:10 05/01/17 19:18 05/01/17 22:43 05/02/17 05:07 D-Dimer Quantitative (PE/DVT) 0.56 MG/L FEU (0.00-0.50) Aspartate Amino Transf (AST/SGOT) 10 U/L (15-37) 6 U/L (15-37) Alkaline Phosphatase 38 U/L (45-117) 33 U/L (45-117) Troponin I LESS THAN 0.02 NG/ML LESS THAN 0.02 NG/ML Neutrophils (%) (Auto) 71.2 % (16.0-70.0) Monocytes (%) (Auto) 13.4 % (0.0-8.0) Monocytes # (Auto) 1.0 TH/MM3 (0-0.9) Calcium Level 8.2 MG/DL (8.5-10.1) Estimat Glomerular Filtration Rate 82 ML/MIN (>89) Test 05/02/17 10:45 Urine Cannabinoids Screen POS (NEG) Imaging Last Impressions Aorta CTA 05/01/172035 Signed Impressions: Service Date/Time: , May 01, 2017 21:21 - CONCLUSION: Normal examination. No evidence of vascular aneurysm or dissection. Negative pulmonary vascularity. Intrathoracic and intra-abdominal contents are normal. Maxi Ocasio MD PE at Discharge awake and alert, throat no exudates lungs clear left chest- non tender regular rhythm abdomen soft, nontender extremities no edema Pt update on day of discharge awake and alert, no distress, afebrile no exudates lungs clear in sinus rhythm Hospital Course 26 year old male with a past medical history of ADHD who presented for back and chest pain Influenza A SIRS: Fever, tachycardia.- t - t max 100- low grade- HR improved - blood cultures- negative so far. Influenza A + - started on TAmiflu 75 mg po bid x 5 days encourage po fluids - clinically feeling better Back and chest pain:improved Reviewed: Initial troponin 0.02. EKG with incomplete right bundle branch block and sharp ST elevation in V1 and V2; V1 had similar features on previous EKG from 2007. -Echo unremarkable - pericarditis is in the differential- cardiology- although ESR 1 - trial of NSAIds- Ibuprofen 600 mg po tid on a full stmach -Continue to trend cardiac enzymes and EKGs. ESR-1 - cardiology ff along with us CXR and EKGs reviewed Brugada syndrome: EKG as above consistent with Brugada syndrome.- likely incidental finding -Further workup per Cardiology- - echo unremarkable . Casing Splitter consulted- awaiting evaluation -CTA negative for aortic dissection -Telemetry monitoring -OP ff up- Dr. Grimaldo Encourage po fluids Pt Condition on Discharge: Stable Discharge Disposition: Discharge Home Discharge Time: <= 30 minutes Discharge Instructions DIET: Follow Instructions for: As Tolerated, No Restrictions Activities you can perform: Weight Bearing as Abiel Activities to Avoid: Strenuous Activity Follow up Referrals: Cardiology with Melissa Duarte MD New Medications: Ibuprofen (Ibuprofen) 600 Mg Tab 600 MG PO TID for infl for 3 Days, #10 TAB Oseltamivir (Tamiflu) 75 Mg Cap 75 MG PO Q12H for flu, #5 CAP Pantoprazole (Pantoprazole) 40 Mg Tab 40 MG PO DAILY for GI prophylaxis for 4 Days, #4 TAB Gaby Dubon MD May 04, 2017 14:06
[2017-05-04] MEDS ORDERED: IBUP-232 PO (14:08)
[2017-05-04] MEDS ORDERED: PANT40TA3 PO (14:08)
--- NOTE | 2017-05-05 08:06 | MB ---
cc: PHILIPP FERRELL MD,ARIEL MADDEN DATE OF : 1990 DATE OF CONSULTATION: 05/04/2017 REASON FOR CONSULTATION: Evaluation of abnormal EKG. REFERRING PHYSICIAN Dr. Sumeet Dubon. HISTORY OF PRESENT ILLNESS Mr. Singletary is a 26-year-old gentleman without any medical problems in the past presented to [place] [facility] with chest pain and back pain. He does have ADHD but currently on no medications. I did get detailed information regarding the family history. His father had heart attack age 40s and at age 52 of possible ischemic event with bypass and CAD in the past. I am not sure if it is related to arrhythmia at all. His maternal grandfather also of [place] in the past. His mom is still alive without any arrhythmia problem. He does have a brother who is healthy also. So far he is admitted and treated for influenza A with Tamiflu. Electrolytes have been normal including potassium 3.8. He did have followup EKG, so far he has serial right bundle-branch block more like a Brugada pattern but so far no other symptoms. No syncope in the past. EKG could be contributed by fevers also. He is not on antiarrhythmic medication. Again, no syncope in the past, no strong family history of sudden cardiac . I will repeat another EKG today. So far he has been feeling better and no additional complains. Echocardiogram showed LVF 65% with normal wall thickness. PAST MEDICAL HISTORY: As above. ALLERGIES NO KNOWN DRUG ALLERGIES. FAMILY HISTORY As above. Again his father age 52 but he had [place], bypass and he was a heavy smoker. SOCIAL HISTORY He does smoke about half a pack of cigarettes every day. He drinks alcohol, occasionally recreational drugs. REVIEW OF SYSTEMS: HEENT: Normal. GI: No nausea, vomiting. : No dysuria. MSK: Fatigue. CVS: As above. CHEST: Some dyspnea. ENDOCRINE: Normal. SKIN: Normal. SEWER INSPECTOR: No dizziness, no syncope. PHYSICAL EXAMINATION: Patient's blood pressure is 120/70 with pulse in the 90s to 100s. He has been feeling better. HEENT: Normal oral exam. PERRLA. Endocrine: There is no lymph node enlargement. LYMPHATICS: He has some lymphadenopathy. RESPIRATORY: Decreased breath sounds bilaterally but no crackles. CARDIOVASCULAR: Regular rhythm; no rubs, no murmurs. No JVP visualized. GI: Active bowel sounds in all four quadrants. : Deferred. MSK: Normal range of motion. SKIN: No ecchymosis. PSYCH: Patient with good mood and good judgment. TESTS: Echocardiogram shows LVF around 60 to 65% with normal wall thickness. Hematocrit 42, potassium 3.8. EKG: Especially in V1 shows pseudo right bundle-branch block with possible type 1 Brugada pattern. ASSESSMENT: 1. Abnormal EKG with possible type 1 Brugada pattern and a pseudo right bundle-branch block. 2. Influenza A with fever. 3. ADHD. PLAN: I did go over all the findings with him, so far he is denying any episode of syncope. No arrhythmia on the tele. No significant family history of sudden cardiac . I will repeat the EKG. I do think the patient is okay to go home with outpatient follow up. I will ask case management to help with insurance for follow up and possible testing including testing and event monitor. I also discussed with him and his family regarding medications such as amiodarone or quinidine, but at this moment, given no symptoms, the patient can be followed up as outpatient. Hopefully he will be compliant with follow up visit and hopefully he can have follow up testing also. Certainly I would try to avoid any anti-arrhythmia medication at this moment. Thank you Dr. Fay and Dr. Dubon. MD ILIANA Franklin/CHRIS /10:52 AM /8:03 AM CASSI
--- NOTE | 2017-05-05 13:47 | EKG ---
Date Performed: 05/04/2017 Time Performed: 13:34:32 PTAGE: 26 years EKG: Sinus bradycardia. Incomplete RBBB Extensive ST elevation suggests pericarditis When compar ed to previous tracing, sinus rate is slower. Abnormal ECG PREVIOUS TRACING : 05/01/2017 21.43 DOCTOR: Michael Hale Interpretating Date/Time 05/05/2017 13:46:19
== END 2017-05-04 15:10 | disposition home or self-care (01) ==
LOC: NEDDLT 16:25 → HCIN 16:35
PROVIDERS: ADMIT Internal Medicine; ATTEND Internal Medicine
DX: R07.81 Pleurodynia (principal); M54.9 Dorsalgia, unspecified; I49.8 Other specified cardiac arrhythmias; I45.10 Unspecified right bundle-branch block; R65.10 Systemic inflammatory response syndrome (SIRS) of non-infectious origin without acute organ dysfunction; J10.1 Influenza due to other identified influenza virus with other respiratory manifestations; F12.90 Cannabis use, unspecified, uncomplicated; R51 Headache; F17.210 Nicotine dependence, cigarettes, uncomplicated; Z82.49 Family history of ischemic heart disease and other diseases of the circulatory system
CPT/HCPCS: 71010; 71275; 74174; 80048; 80053; 80076; 80307; 82550; 83605; 83690; 83735; 84484; 85025; 85379; 85610; 85652; 85730; 87040; 87804; 93005; 93306; 96361; 96374; G0378; J2270; J7030; J7040; Q9967; 96376; J0171; J0461